=== PATIENT | female | born 1975 | race Caucasian/White ===

== ENCOUNTER 2016-09-09 03:52 | Emergency (ER) | payer OTHER ==
[2016-09-09 03:36] LABS: INFLUENZA A NEG (NEG); INFLUENZA B NEG (NEG)
[2016-09-09 03:43] LABS: URINE SOURCE CLEAN CATCH
[2016-09-09 03:45] LABS: URINE APPEARANCE CLEAR; URINE BILIRUBIN NEG (NEG); URINE BLOOD 2+ (NEG); URINE COLOR YELLOW; URINE GLUCOSE NEG (NORM); URINE KETONE NEG (NEG); URINE LEUKOCYTE ESTERASE TRACE (NEG); URINE NITRATE NEG (NEG); URINE PH 5.5 (5-8); URINE PROTEIN NEG (NEG); URINE UROBILINOGEN 0.2 MG/DL (NORM)
[2016-09-09 03:46] LABS: MICRO INDICATED? YES
[2016-09-09 03:49] LABS: CULTURE INDICATED? YES; URINE BACTERIA 1+ (NEG); URINE SQUAMOUS EPITHELIAL CELL OCCAS /[HPF]; URINE TRANSITIONAL EPI CELLS FEW /[HPF]
[~2016-09-09 03:52] MED LIST: ACETAMINOPHEN; ACETAMINOPHEN PO; ACID CONTROLLER20 MG PO; ALBUTEROL17 G1 IH; ALBUTEROL17 GM INH; ALPRAZOLAM PO; AMOXICILLIN500 M1 PO; AUGMENTIN875 MG PO; BACTRIM DS TABL1 TA1 PO; BAYER ASPIRIN325 M1 PO; BENADRYL25 MG PO; BENTYL20 M1 PO; BENTYL20 MG; BENTYL20 MG PO; BENZONATATE PO; BIRTH CONTROL PILL; BIRTH CONTROL PILL PO; CIPRO PO; CIPRO250 MG PO; COUMADIN PO; DARVOCET-N 1001 TAB PO; DICLOFENAC; DICYCLOMINE HCL20 MG PO; DIFLUCAN PO; FISH OIL 1,0001 CAP PO; FISH OIL300 MG; FLAGYL PO; FLEXERIL PO; FLOMAX0.4 M1 DOB; FLOMAX0.4 M1 PO; FLONASE 0.05% N16 G1; FLUOXETINE HCL10 M1; FLUOXETINE HCL40 MG PO; GOLYTELY4000 ML DOB; HYCODAN60 ML 5MG/ PO; IBUPROFEN800 MG PO; KEFLEX PO; KLONOPIN PO; KLONOPIN1 MG PO; LEVAQUIN PO; LOPRESSOR PO; LORTAB 5/500 TA1 TA1 PO; LORTAB 7.5-5001 TAB PO; LOVENOX SUBQ; MACROBID100 MG DOB; MACROBID100 MG PO; MEDROL4 MG/DOSE- PO; METAMUCIL1 PKT PO; METOPROLOL SUCC25 MG PO; METOPROLOL TAR25 MG PO; MOTRIN600 MG PO; MULTI VITAMIN1 EACH; NAPROSYN PO; NAPROSYN500 MG PO; NO MEDICATIONS; PAXIL CR PO; PAXIL PO; PERCOCET; PERCOCET 51 UDTAB 5/ DOB; PERCOCET10 PO; PERCOCET5/325 PO; PERCOCET7.5 PO; PERCODAN TABLET1 TAB PO; PERCOLONE5 MG PO; PHENERGAN PO; PHENERGAN SUPP25 M1 PR; PHENERGAN SUPP25 MG PR; PHENERGAN25 M1 DOB; PHENERGAN25 M1 PO; PHENERGAN25 MG PO; PREDNISONE PO; PRILOSEC PO; PROMETHAZINE HC25 MG PO; PROZAC PO; PROZAC40 MG PO; ROBAXIN 750750 M1 PO; SARAFEM20 MG PO; SUDAFED60 MG PO; TERBINAFINE (L250 MG PO; TOPROL ER PO; TOPROL XL; TOPROL XL PO; TOPROL XL100 MG; TUSSIN COU15 MG/5 ML PO; TYLOX 5/500 CAP1 CAP PO; ULTRAM PO; VIBRAMYCIN100 M1 PO; VICODIN 5/1 TAB 5/50; VICODIN 5/1 TAB 5/50 PO; VICODIN 5/500 T1 TAB PO; VICODIN ES 7.51 EACH PO; VICODIN PO; VITAMIN D400 UNI2 PO; VOLTAREN50 MG PO; VOLTAREN75 MG PO; WOMEN'S DAILY F1 TAB PO; XANAX0.5 MG PO; YAZ; ZITHROMAX PO; ZOFRAN; ZOFRAN ODT4 MG PO; ZOFRAN PO; [UNRECOGNIZED DRUG - OTHER] PO
[2016-09-09] MEDS ORDERED: PYRIDIUM PO (04:28)
[2016-09-09] MEDS ORDERED: OMNICEF300 MG PO (04:29)
[2016-09-09] MEDS ORDERED: PROMETHAZINE D118 ML PO (04:29)
[2016-09-09] MEDS ORDERED: DIFLUCAN PO (04:30)
[2016-09-18] MEDS ORDERED: TAMIFLU75 M1 PO (14:48)
== END 2016-09-09 04:30 | disposition home or self-care (01) ==
LOC: SED 03:52
PROVIDERS: Emergency Medicine
DX: J11.1 Influenza due to unidentified influenza virus with other respiratory manifestations (principal); N39.0 Urinary tract infection, site not specified; F41.9 Anxiety disorder, unspecified; K21.9 Gastro-esophageal reflux disease without esophagitis; Z87.442 Personal history of urinary calculi
CPT/HCPCS: 81003; 87086; 87651; 87804; 87880; 99283

== ENCOUNTER 2016-09-17 04:08 | Emergency (ER) | payer OTHER ==
--- NOTE | ~2016-09-17 | CR63 ---
[facility]. [facility] A Service of [facility] & [facility] RADIOLOGY TEXT RESULTS PATIENT: CORNELIA SILVA LOCATION: SED : 77 UNIT #: [id number] AGE: [address]: Travis Bunch MD SEX: F ORDER DR: [id number] [place] [id number] E MR#: [id number] Acc #: [id number] NAME: CORNELIA SILVA : 1975 SEX: F STUDY DATE/TIME: 09/17/2016 04:20 UNIT: SED ROOM: STUDY DESCRIPTION: CR Chest 2 View Attending Physician: Travis Bunch M.D. Ordering Physician: Travis Bunch M.D. Primary Care Physician: Toñito England M.D. MEDICAL IMAGING REPORT This report is preliminary unless electronic signature is present. EXAM Chest x-ray, 09/17 at 04:20 INDICATION Cough, body aches and chills since 09/09/2016 COMPARISON 11/29/2013 FINDINGS PA and lateral examination of the chest upright shows a good expansion of the parenchyma with a normal distribution of the pulmonary vascularity. There is no indication of congestion, effusion, infiltrate, tumor, or nodular density. The pleural reflections and diaphragmatic contours are normal. The cardiac silhouette and mediastinal anatomy is within normal limits. IMPRESSION Normal chest. Dictated by... Taran Leong Jr., M.D. THIS IS AN ELECTRONICALLY VERIFIED REPORT Taran Leong Jr., M.D. at 09/17/2016 10:00 PM TERENCE/pilo TD: 09/17/2016 10:53 JOB #: [id number] MEDICAL IMAGING REPORT
[~2016-09-17 04:08] MED LIST changes: +OMNICEF300 MG PO; +PROMETHAZINE D118 ML PO; +PYRIDIUM PO
[2016-09-17 04:35] LABS: INFLUENZA A NEG (NEG); INFLUENZA B NEG (NEG)
[2016-09-17 05:04] LABS: MICRO INDICATED? NO; URINE APPEARANCE CLEAR; URINE BILIRUBIN NEG (NEG); URINE BLOOD NEG (NEG); URINE COLOR YELLOW; URINE GLUCOSE NEG (NORM); URINE KETONE NEG (NEG); URINE LEUKOCYTE ESTERASE NEG (NEG); URINE NITRATE NEG (NEG); URINE PROTEIN TRACE (NEG); URINE SOURCE CLEAN CATCH; URINE UROBILINOGEN 0.2 MG/DL (NORM)
[2016-09-18] MEDS ORDERED: TAMIFLU75 M1 PO (14:48)
== END 2016-09-17 05:59 | disposition home or self-care (01) ==
LOC: SED 04:08
PROVIDERS: Emergency Medicine
DX: R50.9 Fever, unspecified (principal); R52 Pain, unspecified
CPT/HCPCS: 71020; 81003; 87651; 87804; 99283

== ENCOUNTER 2016-09-18 15:11 | Emergency (ER) | payer OTHER ==
--- NOTE | ~2016-09-18 | CT16 ---
[facility]. [facility] A Service of [facility] RADIOLOGY TEXT RESULTS PATIENT: CORNELIA SILVA LOCATION: SED : 77 UNIT #: [id number] AGE: [address]: Britney Young MD SEX: F ORDER DR: [id number] [address] [address] [id number] E MR#: [id number] Acc #: [id number] NAME: CORNELIA SILVA : 1975 SEX: F STUDY DATE/TIME: 09/18/2016 16:44 UNIT: SED ROOM: STUDY DESCRIPTION: CT Angio Chest for PE Attending Physician: Britney Young M.D. Ordering Physician: Britney Young M.D. Primary Care Physician: Toñito England M.D. MEDICAL IMAGING REPORT This report is preliminary unless electronic signature is present. EXAM CTA chest, PE protocol, with contrast. DATE OF EXAM 09/18/2016 HISTORY 41-year-old female complains of chest pain for 2 days. "Feels like something stuck in throat." COMPARISON AP portable chest 09/18/2016 at 15:35. CT chest PE protocol 10/29/2009. PROCEDURE 2 mm axial images through the chest after IV contrast administration. 3-D coronal MIP reformatted images were obtained. TECHNIQUE NOTE: This CT exam was performed with one or more of the following radiation dose reduction techniques: automatic exposure control, adjustment of mA and/or kV according to patient size, and iterative reconstruction. FINDINGS No pulmonary embolism. No thoracic aortic aneurysm or aortic dissection. There is generalized mild concentric thickening of the ywo-bg-pcsaj thoracic esophagus, without discrete mass lesion seen. Mild residual thymic tissue is thought to be present in the anterior mediastinum. There is 1 mildly prominent right upper paratracheal node measuring 1 cm short axis. No lung consolidations are identified. Probable trace bilateral pleural STS. [facility] A Service of [facility] RADIOLOGY TEXT RESULTS PATIENT: CORNELIA SILVA LOCATION: SED : 77 UNIT #: [id number] AGE: [address]: HannahOctober SEX: F ORDER DR: effusions. Included upper abdominal organs are within normal limits. No acute or suspicious osseous abnormalities. IMPRESSION 1. Concentric generalized thickening of the sow-zc-cvrlc third of the thoracic esophagus extending to the level of the esophagogastric junction. No discrete mass lesion is seen. Correlate for esophagitis type symptoms. 2. No pulmonary embolism. No aortic aneurysm or dissection. 3. Trace bilateral pleural effusions. No lung consolidations. 4. Mildly prominent right upper paratracheal lymph node is nonspecific and favored to be reactive. Dictated by... Deann Skinner M.D. THIS IS AN ELECTRONICALLY VERIFIED REPORT Denan Skinner M.D. at 09/19/2016 11:57 AM CARLOS/rashmi TD: 09/19/2016 00:58 JOB #: [id number] MEDICAL IMAGING REPORT
--- NOTE | ~2016-09-18 | CR72 ---
[facility]. [facility] A Service of [facility] RADIOLOGY TEXT RESULTS PATIENT: CORNELIA SILVA LOCATION: SED : 77 UNIT #: [id number] AGE: [address]: Britney Young MD SEX: F ORDER DR: [id number] [address] [address] [id number] E MR#: [id number] Acc #: [id number] NAME: CORNELIA SILVA : 1975 SEX: F STUDY DATE/TIME: 09/18/2016 15:35 UNIT: SED ROOM: STUDY DESCRIPTION: CR Chest Single View Portable Attending Physician: Britney Young M.D. Ordering Physician: Margret Spain A.P.R.N. Primary Care Physician: Toñito England M.D. MEDICAL IMAGING REPORT This report is preliminary unless electronic signature is present. EXAM Portable chest. DATE OF EXAM 09/18/2016 INDICATIONS 41-year-old female with chest pain for 2 days. COMPARISON Compared with yesterday. FINDINGS There is increased atelectasis in the left base. Heart size stable. Visualized osseous structures are unremarkable. IMPRESSION Increased atelectasis in the left base, otherwise, unremarkable. Dictated by... Alok Isaac M.D. THIS IS AN ELECTRONICALLY VERIFIED REPORT Alok Isaac M.D. at 09/19/2016 4:42 PM LAM/rashmi TD: 09/18/2016 21:42 JOB #: [id number] MEDICAL IMAGING REPORT
--- NOTE | ~2016-09-18 | EKG ---
PATIENT: CORNELIA SILVA UNIT #: [id number] Ventricular Rate: 97 BPM Atrial Rate: 97 BPM P-R Interval: 152 ms QRS Duration: 88 ms Q-T Interval: 368 ms QTC Calculation(Bezet): 467 ms P [place]: 3 degrees Calculated R [place]: 17 degrees Calculated T [place]: 45 degrees Diagnosis Line: Normal sinus rhythm Diagnosis Line: Normal ECG Diagnosis Line: When compared with ECG of 28-OCT-2009 22:41, Diagnosis Line: Vent. rate has increased BY 33 BPM Diagnosis Line: Confirmed by BULMARO JAY MD ([id number]) on 09/19/2016 Diagnosis Line: 5:37:06 PM INTERPRETING MD: MISTY MANN
[2016-09-18 15:09] LABS: BASOPHIL# 0.1 X10e3 (0-0.3); BASOPHIL% 0.8 % (0-2.5); EOSINOPHIL# 0.2 X10e3 (0-0.7); EOSINOPHIL% 1.7 % (0.0-7.0); HEMATOCRIT 33.5 % (35.0-45.0); HEMOGLOBIN 10.9 gm/dL (12.0-16.0); MEAN CELL VOLUME 84.1 FL (83-96); MEAN CORPUSCULAR HEMOGLOBIN 27.5 PG (28-34); MEAN CORPUSCULAR HGB CONC 32.6 g/dL (30-36); MEAN PLATELET VOLUME 8.3 FL (6.5-11.5); MONOCYTE# 0.8 X10e3 (0-1.0); MONOCYTE% 9.6 % (3.0-12.0); NEUTROPHIL# 6.7 X10e3 (1.5-7.1); NEUTROPHIL% 76.9 % (40-75); PLATELET COUNT 220 X10e3 (140-420); RED BLOOD COUNT 3.98 X10e (3.90-5.30); WHITE BLOOD COUNT 8.8 X10e3 (4.0-10.5)
[~2016-09-18 15:11] MED LIST changes: +TAMIFLU75 M1 PO
[2016-09-18 15:18] LABS: DIFF IND NO
[2016-09-18 15:22] LABS: POC - CKMB 2.7 ng/mL (0.0-7.9); POC - MYOGLOBIN 89.1 ng/mL (0.0-169.0); POC - TROPONIN <0.05 ng/mL (<=0.05)
[2016-09-18 15:35] LABS: ALBUMIN SERUM 3.6 g/dL (3.5-5.0); ALKALINE PHOSPHATASE 82 U/L (32-92); ALT (SGPT) 39 U/L (10-40); AST (SGOT) 49 U/L (10-42); BILIRUBIN,TOTAL 0.4 mg/dL (0.2-2.0); BLOOD UREA NITROGEN 9 mg/dL (9-23); BUN/CREATININE RATIO 11.25; CALCIUM SERUM 8.7 mg/dL (8.4-10.2); CARBON DIOXIDE 25 mmol/L (22-31); CHLORIDE 104 mmol/L (100-111); CREATININE SERUM 0.8 mg/dL (0.6-1.4); GLOM FILT RATE Estimated ABOVE60 mL/min (>60); GLUCOSE FASTING 123 mg/dL (70-110); POTASSIUM 3.3 mmol/L (3.5-5.1); PROTEIN TOTAL SERUM 7.5 g/dL (6.0-8.3); SODIUM 137 mmol/L (135-145)
== END 2016-09-18 18:17 | disposition home or self-care (01) ==
LOC: SED 15:11
PROVIDERS: Nurse Practitioner
DX: K20.9 Esophagitis, unspecified (principal); T50.905A Adverse effect of unspecified drugs, medicaments and biological substances, initial encounter; Z87.442 Personal history of urinary calculi; Z96.0 Presence of urogenital implants; Z79.899 Other long term (current) drug therapy
CPT/HCPCS: 36415; 71010; 71275; 80053; 82553; 83874; 84484; 84703; 85025; 93005; 96374; 96375; 99284; C9113; J1610; J1885; J2270; J2405; J3360; Q9967

== ENCOUNTER 2016-11-06 22:37 | Emergency (ER) | payer OTHER ==
--- NOTE | ~2016-11-06 | EKG ---
PATIENT: CORNELIA SILVA UNIT #: [id number] Ventricular Rate: 109 BPM Atrial Rate: 109 BPM P-R Interval: 168 ms QRS Duration: 86 ms Q-T Interval: 352 ms QTC Calculation(Bezet): 474 ms P [place]: 36 degrees Calculated R [place]: 21 degrees Calculated T [place]: 61 degrees Diagnosis Line: Sinus tachycardia Diagnosis Line: Nonspecific ST abnormality Diagnosis Line: Abnormal ECG Diagnosis Line: When compared with ECG of 18-SEP-2016 14:47, Diagnosis Line: No significant change was found Diagnosis Line: Confirmed by TARA DAVID MD ([id number]) on Diagnosis Line: 11/08/2016 9:21:47 AM INTERPRETING MD: FRANKIE MANN
--- NOTE | ~2016-11-06 | CT16 ---
[facility] A Service of [facility] RADIOLOGY TEXT RESULTS PATIENT: CORNELIA SILVA LOCATION: SED : 77 UNIT #: [id number] AGE: [address]: Travis Bunch MD SEX: F ORDER DR: [id number] [address] [address] [id number] E MR#: [id number] Acc #: [id number] NAME: CORNELIA SILVA : 1975 SEX: F STUDY DATE/TIME: 11/06/2016 23:16 UNIT: SED ROOM: STUDY DESCRIPTION: CT Angio Chest for PE Attending Physician: Travis Bunch M.D. Ordering Physician: Travis Bunch M.D. Primary Care Physician: Toñito England M.D. MEDICAL IMAGING REPORT This report is preliminary unless electronic signature is present. EXAM CT chest with contrast, pulmonary arteriography protocol, 11/06/2016 HISTORY 41-year-old female in the ED complaining of chest pain, tachycardia, nausea and headache beginning earlier this evening. Elevated blood pressure. TECHNIQUE CT examination of the chest with IV contrast using pulmonary arteriography protocol. 3-D CTA images of the pulmonary arteries were reformatted in multiple planes. This CT exam was performed with one or more of the following radiation dose reduction techniques: automatic exposure control, adjustment of mA and/or kV according to patient size, and iterative reconstruction. COMPARISON CT chest, pulmonary artery protocol, 09/18/2016. FINDINGS No pulmonary embolism is demonstrated. Ectatic ascending thoracic aorta measuring up to 3.9 cm is unchanged. No evidence of aortic dissection. Heart size is normal, there is no pericardial effusion. The lungs are expanded and clear. No visible pulmonary infiltrate, pneumothorax or pleural effusion. Distal esophageal wall thickening present on the previous study has improved or resolved today. There is no esophageal dilatation. Limited upper abdominal images are unremarkable. [facility] A Service of [facility] RADIOLOGY TEXT RESULTS PATIENT: CORNELIA SILVA LOCATION: SED : 77 UNIT #: [id number] AGE: [address]: Travis Bunch MD SEX: F ORDER DR: IMPRESSION 1. Negative chest CT examination using pulmonary arteriography protocol. 2. Distal esophageal wall thickening described on the previous study of 09/18/2016 is no longer visible today. Dictated by... Aram Schneider M.D. THIS IS AN ELECTRONICALLY VERIFIED REPORT Aram Schneider M.D. at 11/07/2016 5:58 AM RAZIA/sergio TD: 11/07/2016 00:18 JOB #: [id number] MEDICAL IMAGING REPORT Page 1 of 1
[2016-11-06 22:19] LABS: BASOPHIL% 0.3 % (0-2.5); EOSINOPHIL# 0.5 X10e3 (0-0.7); EOSINOPHIL% 5.3 % (0.0-7.0); HEMATOCRIT 35.8 % (35.0-45.0); HEMOGLOBIN 12.1 gm/dL (12.0-16.0); LYMPHOCYTE# 2.3 X10e3 (1.0-3.5); LYMPHOCYTE% 25.9 % (17.0-45.0); MEAN CORPUSCULAR HEMOGLOBIN 28.4 PG (28-34); MEAN CORPUSCULAR HGB CONC 33.7 g/dL (30-36); MEAN PLATELET VOLUME 8.2 FL (6.5-11.5); MONOCYTE# 0.6 X10e3 (0-1.0); MONOCYTE% 7.1 % (3.0-12.0); NEUTROPHIL# 5.6 X10e3 (1.5-7.1); NEUTROPHIL% 61.4 % (40-75); PLATELET COUNT 318 X10e3 (140-420); RED BLOOD COUNT 4.26 X10e (3.90-5.30); RED CELL DISTRIBUTION WIDTH 17.4 % (11.0-15.5); WHITE BLOOD COUNT 9.1 X10e3 (4.0-10.5)
[2016-11-06 22:20] LABS: DIFF IND NO
[2016-11-06 22:38] LABS: ALBUMIN SERUM 4.3 g/dL (3.5-5.0); BILIRUBIN, DIRECT 0.1 mg/dL (0.0-0.2); BILIRUBIN,INDIRECT 0.4 mg/dL (0.0-0.9); BILIRUBIN,TOTAL 0.5 mg/dL (0.2-2.0); BUN/CREATININE RATIO 17.14; CALCIUM SERUM 9.1 mg/dL (8.4-10.2); CREATININE SERUM 0.7 mg/dL (0.6-1.4); GLOM FILT RATE Estimated 109.1 mL/min (>60); POTASSIUM 3.1 mmol/L (3.5-5.1); PROTEIN TOTAL SERUM 8.3 g/dL (6.0-8.3)
[2016-11-06 22:41] LABS: INR 1.3
[2016-11-06 22:48] LABS: PARTIAL THROMBOPLASTIN TIME 26.8 SECONDS (25.6-38.1)
[2016-11-06 22:55] LABS: POC - CKMB 2.1 ng/mL (0.0-7.9)
[2016-11-06 22:56] LABS: POC - TROPONIN <0.05 ng/mL (<=0.05)
[2016-11-07 00:40] LABS: POC - CKMB 1.6 ng/mL (0.0-7.9); POC - TROPONIN <0.05 ng/mL (<=0.05)
== END 2016-11-07 01:50 | disposition home or self-care (01) ==
LOC: SED 22:37
PROVIDERS: Emergency Medicine
DX: R07.9 Chest pain, unspecified (principal); F41.9 Anxiety disorder, unspecified; Z88.5 Allergy status to narcotic agent
CPT/HCPCS: 36415; 71275; 80048; 80076; 82553; 84484; 84703; 85025; 85379; 85610; 85730; 93005; 96374; 96375; 96376; 99284; J2060; J2405; Q9967

== ENCOUNTER 2017-01-06 08:53 | Observation (INO) | payer OTHER ==
--- NOTE | ~2017-01-06 | CR72 ---
[facility]. [facility] A Service of [facility] & [facility] RADIOLOGY TEXT RESULTS PATIENT: CORNELIA SILVA JENISE LOCATION: [place] [address] : [birth year] UNIT #: [id number] AGE: [address]: Jose Call MD SEX: F ORDER DR: [id number] [address] [address] [id number] E MR#: [id number] Acc #: [id number] NAME: CORNELIA SILVA : 1975 SEX: F STUDY DATE/TIME: 01/06/2017 9:42 UNIT: SED ROOM: STUDY DESCRIPTION: CR Chest Single View Portable Attending Physician: Whitney Yousif M.D. Ordering Physician: Whitney Yousif M.D. Primary Care Physician: Toñito England M.D. MEDICAL IMAGING REPORT This report is preliminary unless electronic signature is present. EXAM AP portable chest, 01/06/2017. HISTORY Heart racing, dizziness and nausea, tachycardia, and chest tightness. Symptoms began this morning. Additional history of hypertension. COMPARISON AP portable chest 09/18/2016. CT-A chest PE protocol 11/06/2016 and 09/18/2016. FINDINGS Clear lungs. Normal heart size. No pleural effusion, pneumothorax, or acute osseous abnormalities. IMPRESSION No acute cardiopulmonary findings. Dictated by... Deann Skinner M.D. THIS IS AN ELECTRONICALLY VERIFIED REPORT Deann Skinner M.D. at 01/08/2017 2:17 PM CARLOS/andra TD: 01/06/2017 13:36 JOB #: [id number] MEDICAL IMAGING REPORT Page 1 of 1
--- NOTE | ~2017-01-06 | HP ---
Unit #: [id number] #: [id number] Patient: CORNELIA SILVA [id number] [address] [place], [place] [address] [id number] I MR#: [id number] NAME: CORNELIA SILVA ROOM: 573 Age: 42 Sex: F Admission Date: 01/06/2017 : 1975 Attending Physician: Jose Call M.D. Primary Care Physician: Toñito England M.D. HISTORY AND PHYSICAL HISTORY OF PRESENT ILLNESS This is a 42-year-old white female who presented to [facility] emergency room with a complaint of substernal nonradiating chest tightness associated with shortness of breath, nausea, dizziness, headache and palpitations. She had chest pain that started at 5 a.m. that was constant until 8 a.m., when she went to the emergency room. She was treated with metoprolol and clonidine because of elevated blood pressure of 184/118 mmHg on arrival. The patient states prior to yesterday she had a similar event a few months ago. She was seen in the emergency room, but her troponin was negative and electrocardiogram was normal. She also reported palpitations that occur at night. In the emergency room electrocardiogram showed no acute ischemic changes. Troponin negative. She has risk factors for ischemic heart disease that include hypertension. She has had a history of pulmonary embolism in 2006 that resolved on subsequent CT angiogram of the chest. PAST MEDICAL HISTORY 1. Hypertension. 2. Pulmonary embolism in 2006. 3. Anxiety. 4. Renal stones status post left J stent. 5. Nonsmoker. PAST SURGICAL HISTORY 1. section. 2. Left foot bone spur removal. 3. Ureteral stent. 4. Tubal ligation. 5. Abdominal hernia repair. 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 She states she is fairly active. She has never smoked. She drinks alcohol on rare occasions. FAMILY HISTORY Negative for coronary artery disease. ALLERGIES Tamiflu and codeine. HOME MEDICATIONS 1. Celexa 10 mg daily. 2. Lorazepam 1 mg daily p.r.n. Unit #: [id number] #: [id number] Patient: CORNELIA SILVA 3. Hydrochlorothiazide 12.5 mg daily. REVIEW OF SYSTEMS CONSTITUTIONAL: Negative for fever or chills. No weight gain or weight loss. HEENT: Positive for headache and dizziness. No hearing or vision changes. Denies difficulty with swallowing. CARDIOVASCULAR: Chest tightness and palpitations as described in history of present illness. No syncope or near syncope. Denies paroxysmal nocturnal dyspnea and orthopnea. RESPIRATORY: Has dyspnea that accompanies chest pain. No cough or hemoptysis. GASTROINTESTINAL: No abdominal pain. Reports occasional nausea. No constipation, hematemesis or melena. EXTREMITIES: Negative for lower extremity edema. PHYSICAL EXAMINATION GENERAL: This is a very anxious 42-year-old white female who is in no acute respiratory distress. VITALS: Blood pressure 139/99, heart rate 72, temperature 97.9, BMI 27. NECK: Trachea midline. No thyromegaly or lymphadenopathy. No jugular venous distension. LUNGS: Clear without rales, rhonchi or wheezes. HEART: S1 and S2. Heart sounds are normal. No murmurs or rubs. Regular rate and rhythm. ABDOMEN: Soft and nontender with bowel sounds present. No organomegaly. EXTREMITIES: Pedal pulses are palpable without leg edema. SKIN: Warm and dry. NEUROLOGIC: She is tearful, but awake, alert and oriented. There is no focal weakness. DIAGNOSTIC STUDIES IMAGING: Chest x-ray shows no active disease. LABORATORY: Hemoglobin 14.4, hematocrit 44.6, platelet count 252, white blood cell count 7.8, sodium 134, potassium 3.5, BUN 14, creatinine 0.8, sodium 98, magnesium 2.0, BNP 10, TSH 1.94, troponin less than 0.05. CARDIOVASCULAR: Electrocardiogram shows sinus tachycardia, rate of 117 beats per minute. ASSESSMENT 1. Chest pain, atypical for significant coronary artery disease. 2. Palpitations. Rule out arrhythmias. 3. Hypertension. 4. Anxiety. PLAN 1. The patient's chest pain is atypical for ischemic heart disease. Will rule out coronary artery disease with exercise Cardiolite stress test. 2. Continue to trend troponin to rule out myocardial infarction. 3. Will add PPI to rule out a GI cause of chest pain. 4. Consider outpatient 24-hour Holter monitor to rule out arrhythmias. 5. TSH is normal. The patient underwent exercise Cardiolite stress test, during which she ambulated on the treadmill for 6 minutes 32 seconds. She had no Unit #: [id number] #: [id number] Patient: CORNELIA SILVA JENISE electrocardiogram changes or chest pain. Nuclear images revealed normal. The patient can be discharged home today, to follow up with primary care physician in 7-10 days. May return to work on 01/08/2017 without restrictions. Rule out arrhythmia with 24-hour Holter monitor in the office. Dictated by Devin Campos A.P.R.N. for Jesus [place]/trino TD: 01/07/2017 16:11 JOB #: [id number] CC: [facility] Toñito England M.D. HISTORY AND PHYSICAL Page 1 of 1 X Devin Campos APRN X HISTORY AND PHYSICAL
--- NOTE | ~2017-01-06 | TH ---
Unit #: [id number] #: [id number] Patient: CORNELIA SILVA [id number] [address] [place], [place] [address] [id number] I MR#: [id number] NAME: CORNELIA SILVA : 1975 SEX: F STUDY DATE/TIME: 01/07/2017 UNIT: [facility] ROOM: 573 STUDY DESCRIPTION: Attending Physician: Jose Call M.D. Primary Care Physician: Toñito England M.D. CARDIOLOGY REPORT DESCRIPTION OF PROCEDURE This 42-year-old patient was exercised on a treadmill, and at the peak of exercise, patient was injected with 32 mCi of technetium-99m Cardiolite and images were obtained according to a standard SPECT protocol. For rest images, 10.84 mCi of Cardiolite was injected. Images were reviewed in both phases. FINDINGS Overall study quality is excellent. LV cavity size is normal in both images. There is no lung activity. RV is normal. Rotating raw data showed no significant artifact, soft tissue attenuation, or GI uptake. Review of the SPECT images showed normal homogeneous radiotracer concentration throughout the myocardium in both the stress and rest images. Gated images showed normal LV wall thickening and wall motion with an estimated LV ejection fraction of 53%. IMPRESSION 1. Myocardial perfusion imaging is normal. 2. No evidence of ischemia or infarct. 3. Normal left ventricle dimensions. 4. Normal systolic left ventricular function with an estimated left ventricular ejection fraction of 53%. 1. Dictated by... Jesus Christensen/jam TD: 01/07/2017 22:21 JOB #: [id number] CARDIOLOGY REPORT Page 1 of 1 X Seven Johnson MD CARDIOLOGY REPORT
--- NOTE | ~2017-01-06 | EKG ---
PATIENT: CORNELIA SILVA UNIT #: [id number] Ventricular Rate: 117 BPM Atrial Rate: 117 BPM P-R Interval: 148 ms QRS Duration: 78 ms Q-T Interval: 322 ms QTC Calculation(Bezet): 449 ms P [place]: 32 degrees Calculated R [place]: 35 degrees Calculated T [place]: 57 degrees Diagnosis Line: Sinus tachycardia Diagnosis Line: Otherwise normal ECG Diagnosis Line: When compared with ECG of 06-NOV-2016 21:56, Diagnosis Line: No significant change was found Diagnosis Line: Confirmed by ADAN KOVACS MD ([id number]) on Diagnosis Line: 01/20/2017 5:08:27 PM INTERPRETING MD: HAYDEE
--- NOTE | ~2017-01-06 | ST ---
Unit #: [id number] #: [id number] Patient: CORNELIA SILVA [id number] [facility]. [place] [id number] [facility]. [place], [place] [address] [id number] I MR#: [id number] NAME: CORNELIA SILVA : 1975 SEX: F STUDY DATE/TIME: 01/07/2017 UNIT: [facility] ROOM: 573 STUDY DESCRIPTION: Cardiac stress test Attending Physician: Jose Call M.D. Primary Care Physician: Toñito England M.D. CARDIOLOGY REPORT EXAM Cardiac stress test. REASON FOR STUDY Chest pain and palpitations. PROCEDURE Baseline EKG is sinus tachycardia with a ventricular rate of 101. The patient exercised on the treadmill according to the Kevin protocol for 6 minutes 32 seconds, achieving a work level of 7.8 METS. Resting heart rate was 101. Maximal heart rate was 181, representing 100% of the maximal age-predicted heart rate. The patient denied experiencing any symptoms. There were some nonspecific T wave abnormalities during the test. No arrhythmias were noted or ischemia changes. The test was stopped due to achieving maximal heart rate. IMPRESSION 1. This is a negative test. 2. Cardiolite was injected after 4 minutes 13 seconds. Radionuclide tests are pending. Please correlate with nuclear images. Dictated by... Joy Shah APRN for Jesus [place] TD: 01/07/2017 10:01 JOB #: [id number] CARDIOLOGY REPORT Page 1 of 1 X CARDIOLOGY REPORT
[2017-01-06] MEDS ORDERED: CELEXA PO (09:01)
[2017-01-06] MEDS ORDERED: HCTZ PO (09:01)
[2017-01-06 09:55] LABS: BASOPHIL# 0.1 X10e3 (0-0.3); BASOPHIL% 1.5 % (0-2.5); EOSINOPHIL# 0.6 X10e3 (0-0.7); EOSINOPHIL% 7.8 % (0.0-7.0); HEMATOCRIT 41.6 % (35.0-45.0); HEMOGLOBIN 14.4 gm/dL (12.0-16.0); LYMPHOCYTE# 1.7 X10e3 (1.0-3.5); LYMPHOCYTE% 21.7 % (17.0-45.0); MEAN CELL VOLUME 86.5 FL (83-96); MEAN CORPUSCULAR HEMOGLOBIN 29.8 PG (28-34); MEAN CORPUSCULAR HGB CONC 34.5 g/dL (30-36); MEAN PLATELET VOLUME 8.5 FL (6.5-11.5); MONOCYTE# 0.6 X10e3 (0-1.0); MONOCYTE% 8.3 % (3.0-12.0); NEUTROPHIL# 4.8 X10e3 (1.5-7.1); NEUTROPHIL% 60.7 % (40-75); PLATELET COUNT 252 X10e3 (140-420); RED BLOOD COUNT 4.81 X10e (3.90-5.30); RED CELL DISTRIBUTION WIDTH 15.1 % (11.0-15.5); WHITE BLOOD COUNT 7.8 X10e3 (4.0-10.5)
[2017-01-06 10:00] LABS: URINE APPEARANCE CLEAR; URINE BILIRUBIN NEG (NEG); URINE BLOOD NEG (NEG); URINE COLOR YELLOW; URINE GLUCOSE NEG (NORM); URINE KETONE NEG (NEG); URINE LEUKOCYTE ESTERASE NEG (NEG); URINE NITRATE NEG (NEG); URINE PROTEIN NEG (NEG); URINE UROBILINOGEN 0.2 MG/DL (NORM)
[2017-01-06 10:02] LABS: DIFF IND NO; URINE SOURCE CLEAN CATCH
[2017-01-06 10:03] LABS: MICRO INDICATED? NO
[2017-01-06 10:11] LABS: AMPHETAMINE NEG (NEG); BARBITURATES NEG (NEG); BENZODIAZEPINES POS (NEG); COCAINE NEG (NEG); MARIJUANA NEG (NEG); OPIATES NEG (NEG); TRICYCLIC ANTIDEPRESSANTS NEG (NEG); U METHADONE NEG (NEG)
[2017-01-06 10:29] LABS: ALBUMIN SERUM 4.3 g/dL (3.5-5.0); ALKALINE PHOSPHATASE 64 U/L (32-92); ALT (SGPT) 19 U/L (10-40); AST (SGOT) 24 U/L (10-42); BILIRUBIN, DIRECT 0.1 mg/dL (0.0-0.2); BILIRUBIN,INDIRECT 0.4 mg/dL (0.0-0.9); BILIRUBIN,TOTAL 0.5 mg/dL (0.2-2.0); BLOOD UREA NITROGEN 14 mg/dL (9-23); CARBON DIOXIDE 25 mmol/L (22-31); CHLORIDE 100 mmol/L (100-111); CREATININE SERUM 0.8 mg/dL (0.6-1.4); GLOM FILT RATE Estimated 92.3 mL/min (>60); GLUCOSE FASTING 98 mg/dL (70-110); POTASSIUM 3.5 mmol/L (3.5-5.1); PROTEIN TOTAL SERUM 8.6 g/dL (6.0-8.3); SODIUM 134 mmol/L (135-145)
[2017-01-06 10:32] LABS: ALCOHOL BLOOD <5 mg/dL (0)
[2017-01-06 11:07] LABS: POC - CKMB <1.0 ng/mL (0.0-7.9); POC - TROPONIN <0.05 ng/mL (<=0.05)
[2017-01-06 11:43] LABS: POC - CKMB <1.0 ng/mL (0.0-7.9); POC - TROPONIN <0.05 ng/mL (<=0.05)
[2017-01-06] MEDS ORDERED: CELEXA10 MG PO (12:46)
[2017-01-06] MEDS ORDERED: ALDACTAZIDE 251 EACH PO (12:47)
[2017-01-06] MEDS ORDERED: LORAZEPAM1 MG PO (12:47)
[2017-01-06 19:39] LABS: %MB 1.5 % (0.0-4.0); MB 1.4 ng/ml
[2017-01-07] MEDS ORDERED: HYDROCHLOROTH12.5 M1 PO (00:57)
[2017-01-07 01:29] LABS: %MB 1.6 % (0.0-4.0); MB 1.5 ng/ml
[2017-01-07 06:31] LABS: BUN/CREATININE RATIO 21.25; CREATININE SERUM 0.8 mg/dL (0.6-1.4); GLOM FILT RATE Estimated 92.3 mL/min (>60); POTASSIUM 3.9 mmol/L (3.5-5.1)
== END 2017-01-07 16:25 | disposition home or self-care (01) ==
LOC: SED 08:53 → CEDOF 12:37 → SED 12:37 → C5C 12:37 → CEDOF 16:48 → C5C 17:15 → CEDOF 17:15 → C5C 01-07 16:25
PROVIDERS: Emergency Medicine; Internal Medicine Cardiovascular Disease
DX: R07.89 Other chest pain (principal); R00.2 Palpitations; I10 Essential (primary) hypertension; F41.9 Anxiety disorder, unspecified; Z87.442 Personal history of urinary calculi; Z86.711 Personal history of pulmonary embolism; Z98.51 Tubal ligation status; Z98.890 Other specified postprocedural states; Z88.8 Allergy status to other drugs, medicaments and biological substances; Z88.5 Allergy status to narcotic agent; Z79.899 Other long term (current) drug therapy
CPT/HCPCS: 36415; 71010; 78452; 80048; 80061; 80076; 80307; 81003; 82550; 82553; 83735; 83880; 84443; 84484; 85025; 93005; 93017; 96374; 99285; A9500; C9113; G0378; G0480